=== PATIENT | male | born 1940 | race Caucasian/White ===

== ENCOUNTER → 2018-04-07 12:33 | Outpatient (CLI) | payer MEDICARE, OTHER, SELFPAY | PROVIDERS: Family Provider Family Medicine; PCP Family Medicine; Visit Provider Urology | DX: R31.9 Hematuria, unspecified (principal) | CPT/HCPCS: 87086; 87088 ==

== ENCOUNTER 2018-05-20 11:18 | Day surgery (SDC) | payer MEDICARE, OTHER, SELFPAY ==
[2018-05-13 14:14] VITALS: BP 124/70; PULSE 82; RESP 16; TEMP 36.6; O2SAT 97; BMI 25.7
[2018-05-13 14:45] LABS: Color, Urine Yellow (Yellow); Glucose, Dipstick Normal (Normal); Ketone-Dipstick Negative (Negative); Leukocyte Esterase-Dipstick 500 /ul (Negative); Nitrite-Dipstick Negative (Negative); Occult Blood-Urine 250 /ul (Negative); Protein-Dipstick Negative (Negative); Specific Gravity, Urine 1.015 (1.002-1.030); Urine Bilirubin Dipstick Negative (Negative); Urine Clarity Clear (Clear); Urine Urobilinogen Normal (Normal)
[2018-05-13 14:54] LABS: International Normalized Ratio 1.1; Prothrombin Time (Protime)PT. 14.5 SECONDS (11.7-14.9)
[2018-05-13 14:55] LABS: Hematocrit 41.9 % (40-54); Hemoglobin 13.6 g/dl (13.0-16.5); Mean Corp Hgb Conc 32.5 g/gl (32-36); Mean Corpuscular Volume 86.4 fL (80-94); Mean Platelet Vol. 10.4 fl (6.2-12.0); Partial Thromboplast Time 29.3 Seconds (24.1-36.2); Platelet Count 296 K/mm3 (150-450); RBC Distribution Width CV 13.6 % (11.6-14.6); RBC Distribution Width SD 42.4 fl (35.1-43.9); Red Blood Count 4.85 M/mm3 (4.6-6.2); White Blood Count 7.3 K/mm3 (4.4-11.0)
[2018-05-13 14:59] LABS: Scan Indicated on CBC? Y/N NO
[2018-05-13 15:11] LABS: ALB/GLOB Ratio 0.7 RATIO (0.9-2.4); AST(SGOT) 15 U/L (15-37); Alanine Aminotransfer ALT/SGPT 23 U/L (16-61); Albumin, Serum 3.3 g/dL (3.2-5.0); Alkaline Phosphatase 95 U/L (45-117); Anion Gap 6 (5-15); BUN 20 mg/dL (7-18); Chloride 106 mmol/L (98-107); Creatinine, Serum 0.74 mg/dL (0.70-1.30); EST Glomerular Filtration Rate 109 mL/min (>60); Est Glom Filt Rate - Afr Amer 131 mL/min (>60); Globulin 4.7 g/dL (2.2-4.2); Glucose 105 mg/dL (74-106); Potassium 4.1 mmol/L (3.5-5.1); Sodium Level 141 mmol/L (136-145)
[2018-05-20 11:49] VITALS: BP 159/88; PULSE 88; RESP 16; TEMP 36.6; O2SAT 98; BMI 25.7
--- NOTE | 2018-05-20 13:10 | PROS_PTH ---
PATIENT: TONI CASANOVA [place] [facility] [place][id number] AGE/SX: 77/M ROOM: RE05/20/[address]: Dr. Jony Nails MD : [id number] BED: DIS: 05/20/2018 SPEC #: [id number] RECD: 05/20/18 14:24 STATUS: OMEGA REZack #: [id number] SHAY: 05/20/18 13:[address]: Jony Nails DEPT: SURGICAL PATHOLOGY RECD BY: Sumit Mcneal ENTERED: 05/20/18 14:33 SP TYPE: TURP OTHR DR: Dr. 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 Special stains for acid fast bacilli and fungi are negative for organisms; matched controls are appropriate. MERVIN:ingrid 05/21/18 MICROSCOPIC DESCRIPTION Slides are reviewed. GROSS DESCRIPTION Received is one container labeled with the patient's name and designated prostate tissue. The specimen consists of multiple irregular fragments of pink-mccracken, rubbery, soft tissue that in aggregate weigh 1.2 gm and measure in aggregate 2 x 2 x 0.3 cm. The entire specimen is submitted in one cassette. / MERVIN:ingrid 05/20/18 TC:2 CPT: 88404, 44957 x2
--- NOTE | 2018-05-20 13:51 | DCINST_ITS ---
Discharge Diet: Light diet - advance as tolerated Discharge Activity: Return to Normal Activity Suture Line Care: Avoid Pulling/Pushing, Avoid Pinching/Bending Catheter: Veronica to leg bag, Veronica to large bag Drain: [place] Allergies/Adverse Reactions: Allergies Iodinated Contrast- Oral and IV Dye Allergy (Verified 05/13/18 13:55) Itching Medications to take at Discharge Cholecalciferol (Vitamin D3) [Vitamin D3] 1,000 unit PO SUMOTUWETHFR 06/27/17 Prednisone 4 mg PO DAILY 06/27/17 Apixaban [Eliquis] 5 mg PO BID 05/13/18 Dutasteride [Avodart] 0.5 mg PO DAILY 05/13/18 Ferrous Sulfate [Iron] 325 mg PO BID 05/13/18 Primary Care Physician: Harriet Srinivasan MD [Primary Care Provider] - Test Results: Test results from this visit will be discussed in further detail at your follow- up appointment, if applicable. Please Follow Up With: Jony Nails MD When: follow up in two weeks to remove veronica.
--- NOTE | 2018-05-20 13:53 | PCM.OPRPT ---
Report of Operation Date of Procedure: 05/20/18 Pre-Operative Diagnosis: Status post TURP, development of slow flow and incontinence, mild prostatic regrowth Post-Operative Diagnosis: Same Surgery/Procedure Performed:: Transurethral resection of the prostate for regrowth near the sphincter Description of Surgical Findings:: 77-year-old male who underwent a TURP close to 9 months ago for the first 5 months did really well, had a nice wide open stream and good flow and good control of his bladder is really happy with how he was doing after surgery then went down to [place] he did have a scope done there because he started developing incontinence and slow flow. In [place] he reported his PVR only been 15 cc in my office here the PVR was about 150. He reports having a slow flow and episodes of incontinence and bladder control problems. In my office there was no leakage with coughing or sneezing with a full bladder I did a cystoscopy and had some mild small little regrowth near the apex of the prostate so I warned the patient's possible relieving this growth will help with this flow but also warned the patient's possible he may have had more incontinence more problems. 77-year-old male taken back to the operating room after smooth induction of general anesthesia he is placed in dorsal lithotomy position the penis testicles were prepped and draped in usual sterile fashion went into the bladder with a 24 [place] noncontinuous flow Olympus resectoscope, all the way through the urethra pendulous urethra is normal the bulbar urethra is normal no scar tissue or stricture strictures came to the sphincter which is intact and then I came into the fossa of the prostate and there is a little bit of tissue coming down from the roof he had a nice resected tissue coming below that identified the verumontanum that was still visible and pulled back to the sphincter he can see the remove the tissue of the roof coming down some some webbing of tissue on the right and left side so I resected this tissue coming from the roof is very little tissue and then resected some of the webbing on the right and left side pulled back to the sphincter and was really very little more tissue to do really concerned about doing a more aggressive resection that he would end up with significant incontinence. I did fill his bladder up and try to do Crede maneuver but has some flapping tissue around the sphincter and really had a very poor flow so went back in cognitive cauterize around the apical area of the tissue and then put a 20 [place] catheter in only the 20 [place] catheter in for 2 weeks let this heal and then will get the catheter out and see how he does. Patient was taken back to recovery room after reversal of his anesthesia. He will go home with a leg bag Type of Anesthesia:: General Drains: 20 fr veronica - Admit VTE Documentation VTE Present on Admission: No VTE Mechan Device Prophylaxis: SCD's VTE Pharm Prophylaxis ordered?: No Reason prophylaxis not ordered:: Treatment Not Indicated
--- NOTE | 2018-05-20 13:58 | OP.PCM_ITS ---
Report of Operation Date of Procedure: 05/20/18 Pre-Operative Diagnosis: Status post TURP, development of slow flow and incontinence, mild prostatic regrowth Post-Operative Diagnosis: Same Surgery/Procedure Performed:: Transurethral resection of the prostate for regrowth near the sphincter Description of Surgical Findings:: 77-year-old male who underwent a TURP close to 9 months ago for the first 5 months did really well, had a nice wide open stream and good flow and good control of his bladder is really happy with how he was doing after surgery then went down to [place] he did have a scope done there because he started developing incontinence and slow flow. In [place] he reported his PVR only been 15 cc in my office here the PVR was about 150. He reports having a slow flow and episodes of incontinence and bladder control problems. In my office there was no leakage with coughing or sneezing with a full bladder I did a cystoscopy and had some mild small little regrowth near the apex of the prostate so I warned the patient's possible relieving this growth will help with this flow but also warned the patient's possible he may have had more incontinence more problems. 77-year-old male taken back to the operating room after smooth induction of general anesthesia he is placed in dorsal lithotomy position the penis testicles were prepped and draped in usual sterile fashion went into the bladder with a 24 Citizen [place] noncontinuous flow Olympus resectoscope, all the way through the urethra pendulous urethra is normal the bulbar urethra is normal no scar tissue or stricture strictures came to the sphincter which is intact and then I came into the fossa of the prostate and there is a little bit of tissue coming down from the roof he had a nice resected tissue coming below that identified the verumontanum that was still visible and pulled back to the sphincter he can see the remove the tissue of the roof coming down some some webbing of tissue on the right and left side so I resected this tissue coming from the roof is very little tissue and then resected some of the webbing on the right and left side pulled back to the sphincter and was really very little more tissue to do really concerned about doing a more aggressive resection that he would end up with significant incontinence. I did fill his bladder up and try to do Crede maneuver but has some flapping tissue around the sphincter and really had a very poor flow so went back in cognitive cauterize around the apical area of the tissue and then put a 20 [place] catheter in only the 20 [place] catheter in for 2 weeks let this heal and then will get the catheter out and see how he does. Patient was taken back to recovery room after reversal of his anesthesia. He will go home with a leg bag Type of Anesthesia:: General Drains: 20 fr veronica - Admit VTE Documentation VTE Present on Admission: No VTE Mechan Device Prophylaxis: SCD's VTE Pharm Prophylaxis ordered?: No Reason prophylaxis not ordered:: Treatment Not Indicated
[2018-05-20 14:00] VITALS: BP 159/88; BP 161/83; PULSE 89; RESP 16; TEMP 36.6; O2SAT 97
[2018-05-20 14:15] VITALS: BP 152/86; BP 159/88; PULSE 83; RESP 16; O2SAT 97
[2018-05-20 14:30] VITALS: BP 157/94; BP 159/88; PULSE 84; RESP 16; O2SAT 97
[2018-05-20 14:47] VITALS: BP 159/88; BP 159/93; PULSE 83; RESP 16; TEMP 36.5; O2SAT 97
[2018-05-20 15:20] VITALS: BP 159/88
== END 2018-05-20 15:23 | disposition home or self-care (01) ==
LOC: SDC 11:18 → AC 11:19 → MS3 13:54 → AC 13:56
PROVIDERS: Anesthesiology; Family Provider Family Medicine; PCP Family Medicine; Visit Provider Urology
PROC: (CPT 52630; principal; 2018-05-20 13:00)
DX: N40.1 Benign prostatic hyperplasia with lower urinary tract symptoms (principal); R39.14 Feeling of incomplete bladder emptying; N39.46 Mixed incontinence; R39.12 Poor urinary stream; R33.8 Other retention of urine; R35.1 Nocturia; I48.91 Unspecified atrial fibrillation; I10 Essential (primary) hypertension; E78.5 Hyperlipidemia, unspecified; E55.9 Vitamin D deficiency, unspecified; M35.3 Polymyalgia rheumatica; D64.9 Anemia, unspecified; Z79.82 Long term (current) use of aspirin; Z79.01 Long term (current) use of anticoagulants; Z79.899 Other long term (current) drug therapy; Z87.891 Personal history of nicotine dependence; Z95.5 Presence of coronary angioplasty implant and graft
CPT/HCPCS: 52630; 80053; 81002; 85027; 85610; 85730; 87086; 88305; 88312; J7120; J2405